=== PATIENT | female | born 1995 | race African-American/Black ===

== ENCOUNTER 2017-07-06 11:29 | Emergency (ER) | payer BC, MEDICAID ==
[~2017-07-06] VITALS: Ht 157.5 cm; Wt 69.5 kg
[~2017-07-06 11:29] MED LIST: ALBU0.63; ALBU17I; MOME17I; PRED1
[2017-07-06 11:33] VITALS: BP 126/78; PULSE 98; RESP 12; TEMP 101.1; O2SAT 98
[2017-07-06] MEDS ORDERED: OSEL75 PO (15:22)
--- NOTE | 2017-07-06 15:25 | PD ---
HPI Chief Complaint: Cold / Flu Symptoms Time Seen by Provider: 15:09 Travel History International Travel<30 days: No Contact w/Intl Traveler<30days: No Traveled to known affect area: No History of Present Illness HPI This is a 22-year-old female who presents for evaluation of cough, congestion, fevers, chills, myalgias. Started 2 days ago. Her sister and son have had similar symptoms. She took Motrin last night but symptoms persisted which prompted evaluation. Denies recent travel, denies rash, abdominal pain, nausea or vomiting. She has no other complaints. PFSH Past Medical History Asthma: Yes Diminished Hearing: No Respiratory: Yes (asthma) ?: Not LMP: on now Social History Alcohol Use: No Tobacco Use: No Allergies-Medications (Allergen,Severity, Reaction): Coded Allergies: aspirin (Unverified Allergy, Mild, DOCTORS STATED SHE SHOULD NOT TAKE IT, 02/06/17) Reported Meds & Prescriptions Reported Meds & Active Scripts Active Tamiflu (Oseltamivir Phosphate) 75 Mg Cap 75 Mg PO BID 5 Days Reported Nasonex (Mometasone Furoate) 17 Gm [place] Accuneb 0.63 mg/3 ml (Albuterol Sulfate) 0.63 Mg/3 Ml Neb Proventil Mdi (Albuterol Sulfate) 17 Gm [place] Deltasone (Prednisone) 1 Mg Tab Review of Systems Except as stated in HPI: all other systems reviewed are Neg Physical Exam Narrative GENERAL: Well-developed well-nourished female in no acute distress. Febrile in triage. SKIN: Warm and dry. HEAD: Atraumatic. Normocephalic. EYES: Pupils equal and round. No scleral icterus. No injection or drainage. ENT: No nasal bleeding or discharge. Mucous membranes pink and moist. No oropharyngeal erythema or exudate. NECK: Trachea midline. No JVD. No lymphadenopathy. CARDIOVASCULAR: Regular rate and rhythm. No murmur appreciated. RESPIRATORY: No accessory muscle use. Clear to auscultation. Breath sounds equal bilaterally. GASTROINTESTINAL: Abdomen soft, non-tender, nondistended. Hepatic and splenic margins not palpable. MUSCULOSKELETAL: No obvious deformities. No clubbing. No cyanosis. No edema. NEUROLOGICAL: Awake and alert. No obvious cranial nerve deficits. Motor grossly within normal limits. Normal speech. PSYCHIATRIC: Appropriate mood and affect; insight and judgment normal. Data Data Last Documented VS Vital Signs Date Time Temp Pulse Resp B/P (MAP) Pulse Ox O2 Delivery O2 Flow Rate FiO2 07/06/17 11:33 101.1 98 12 126/78 (94) 98 Orders Orders Group A Rapid Strep Screen (07/06/17 12:06) Influenzae A/B Antigen (07/06/17 12:06) Strep Culture (Group A) (07/06/17 12:30) Ibuprofen (Motrin) (07/06/17 15:30) Ed Discharge Order (07/06/17 15:21) MDM Medical Decision Making Medical Screen Exam Complete: Yes Emergency Medical Condition: Yes Medical Record Reviewed: Yes Differential Diagnosis Influenza, bronchitis, pneumonia, pharyngitis, tonsillitis, otitis media Narrative Course 22-year-old female 2 days of cough, congestion, sore throat, fevers and chills. Her sister and son that had similar symptoms. Influenza antigen performed in triage is positive for influenza A. Discussed the potential benefits of Tamiflu and the patient will be discharged with a prescription. She will be given a dose of Motrin prior to discharge. Diagnosis Primary Impression: Influenza A Additional Instructions: Medication as prescribed. Stay well hydrated and well-nourished. Take Tylenol and Motrin for fever per dosing instructions on bottle. Follow-up with primary care physician and return for any acutely new or worsening symptoms. Med/Other Pt SpecificInfo: Prescription(s) given Scripts Oseltamivir (Tamiflu) 75 Mg Cap 75 MG PO BID for Mgmt Viral Infection for 5 Days, #10 CAP 0 Refills Prov: Anselmo Spann MD 07/06/17 Disposition: 01 DISCHARGE HOME Condition: Stable Roman Wadsworth Jul 06, 2017 15:25
[2017-07-06] MEDS ORDERED: IBUPROFEN 600 MG TAB PO ONE (15:30)
== END 2017-07-06 15:49 | disposition home or self-care (01) ==
LOC: NEPD 11:29
DX: J10.1 Influenza due to other identified influenza virus with other respiratory manifestations (principal); J45.909 Unspecified asthma, uncomplicated
CPT/HCPCS: 87081; 87804; 87880; 99283